=== PATIENT | male | born 1965 | race Caucasian/White ===

== ENCOUNTER 2025-01-17 13:40 | Emergency (ER) | payer BC, SELFPAY ==
--- OUTSIDE RECORDS SUMMARY | 2025-01-17 13:43 | XMS_ITS | Clinical Summary ---
Author Organization [employer] [facility] Address [address] [place] [id number] Care Team Providers Care Clothing Patternmaker Name Role Phone Freedom Kc MD Primary Care Provider Allergies Active Allergy Reactions Criticality Noted Date Comments Chlorpheniramine-Phenylpr opan *Unknown 03/03/2024 not allergic to chlorpheneramine- has Hay Fever the condition Medications acetaminophen (TYLENOL ORAL) Take 1,000 mg by mouth. Active clobetasol 0.05% (TEMOVATE 0.05% OINTMENT) 0.05 % ointmentIndicat ions:Well adult exam Apply topically to affected area(s) 2 times daily. 30 g 6 1 Active losartan (COZAAR) 100 mg tabletIndicatio ns:HTN (hypertension) Take 1 Tablet (100 mg) by mouth once daily. 30 Tablet 3 5 Active albuterol HFA (ProAir HFA) 90 mcg/actuation inhalerIndicati ons:Upper respiratory tract infection, unspecified type Inhale 1-2 Puffs by mouth every 6 hours if needed. 1 Each 1 12/22/19 25 Discontinu ed(*Med complete/R egimen complete/L evel of care change) benzonatate (Tessalon Perles) 100 mg capsuleIndicati ons:Upper respiratory tract infection, unspecified type Take 1 Capsule (100 mg) by mouth 3 times daily if needed for Cough. 30 Capsule 1 12/22/19 25 Discontinu ed(*Med complete/R egimen complete/L evel of care change) SUMAtriptan (IMITREX) 100 mg tabletIndicatio ns:Temporal headache Give at minimum 2hrs apart. Max Dose: 200mg per 24hrs.TAKE 1 TABLET BY MOUTH EVERY 2 HOURS IF NEEDED FOR MIGRAINE. GIVE AT MINIMUM 2 HOURS APART. MAX DOSE: 200MG PER 24 HOURS 10 Tablet 12 1 12/22/19 25 Discontinu ed(*Med complete/R egimen complete/L evel of care change) tiZANidine (ZANAFLEX) 4 mg tabletIndicatio ns:Low back strain, initial encounter Take 1 Tablet (4 mg) by mouth every 6 hours if needed for Muscle Spasm. 20 Tablet 2 12/22/19 25 Discontinu ed(*Med complete/R egimen complete/L evel of care change) losartan 50 mg tabletIndicatio ns:HTN (hypertension) Take 1 Tablet (50 mg) by mouth once daily. 90 Tablet 3 5 12/22/19 25 Discontinu ed(*Medica tion adjustment ) Active Problems Problem Noted Date Diagnosed Date Pancreatitis, acute 05/31/2019 Quadriceps muscle rupture, right, initial encoun ter 03/29/2018 Polyp of colon Encounters Date Type Department Care Team Description 01/17/2025 Nurse Triage [address] [phone] Freedom Kc MD Neurologic Problem 12/21/2024 9:00 AM CDT Office Visit [address] [phone] Freedom Kc MD Blood Pressure (Having chest pain center of chest off and on lasts seconds ) 12/21/2024 Travel 11/21/2024 9:40 AM CDT Office Visit [address] [phone] Freedom Kc MD Follow Up (Blood pressure ) 11/21/2024 Travel from Last 3 Months Immunizations Immunization Administration Dates Next Due Hepatitis B (Adult) 12/27/1998,10/22/1998 Td (Age >=7 Years) 01/02/2020,03/28/2003, 994 Family History Medical History Relation Name Comments Cancer-colon Father Diabetes Father Hypertension Father Heart attack Mother Hypertension Mother Relation Name Status Comments Brother 1 Alive Brother 2 MVA Father Mother Alive Social History Tobacco Use Types Packs/Day Years Used Date Smoking Tobacco: Never Smokeless Tobacco: Never Tobacco Cessation:Counseling Given: Yes Alcohol Use Standard Drinks/Week Comments Not Currently 5 (1 standard drink = 0.6 oz pur e alcohol) quit 11/2019 PHQ-2 Answer Date Recorded PHQ-2 TOTAL SCORE 0 08/16/2024 Social Connections Answer Date Recorded Do you often feel lonely or isolated from those around you? 0 11/21/2024 Financial Resource Strain Answer Date R ecorded Difficulty of Paying Living Expenses 3 11/21/2024 Difficulty of Paying Living Expenses Not on file 11/21/2024 Food Insecurity Answer Date Recorded Do you worry your food will run out before you are able to buy more? 1 11/21/2024 Transportation Needs Answer Date Record ed Does lack of transportation keep you from medica l appointments? 1 11/21/2024 Does lack of transportation keep you from work, meetings or getting things that you need? 1 11/21/2024 Housing Stability Answer Date Recorded What is your housing situation today? 1 11/21/2024 Interpersonal Safety Answer Date Record ed Are you being hit, kicked, p ushed or yelled at (see row info)? No 03/03/2024 Interpersonal Safety Abuse 12 - 18 Not on file 03/03/2024 Interpersonal Safety Ambulatory Vulnerability No t on file 03/03/2024 Utilities Answer Date Recorded Do you have trouble paying f or utilities (for example, heat, electricity, water, phone)? 1 11/21/2024 Sex and Gender Information Value Date Recorded Sex Assigned at Not on file Legal Sex Male 5:51 AM [employer] Gender Identity Not on file Sexual Orientation Not on file Obstetrics History Last Filed Vital Signs Vital Sign Reading Time Taken Comments Blood Pressure 142/102 12/21/2024 9:08 AM CDT Pulse 64 12/21/2024 9:04 AM CDT Temperature 36.6 C (97.9 F) 08/14/2024 5:52 PM CDT Respiratory Rate 18 08/14/2024 5:52 PM CDT Oxygen Saturation 100% 08/16/2024 11:44 AM CDT Inhaled Oxygen Concentration - - Weight 103.9 kg (229 lb) 12/21/2024 9:04 AM CDT Height 177.8 cm (5' 10) 12/21/2024 9:04 AM CDT Body Mass Index 32.86 12/21/2024 9:04 AM CDT Plan of Treatment Upcoming Encounters Date Type Department Care Team (Late st Contact Info) Description 01/23/2025 2:00 PM CDT Office Visit [facility] [address] [place] [address] Freedom Kc MD [address] [place] [address] Health Maintenance Due Date Last Done Comments HIV for age 15-65 1982 Hepatitis C screening for ag e 18-79 1985 Hepatitis B series for 19+ ( 3 of 3 - 19+ 3-dose series) 04/24/1999 12/27/1998, 10/22/1998 Pneumococcal series for age 50+ (1 of 1 - PCV) 2017 Zoster (shingles) series for age 50+ (1 of 2) 2017 COVID-19 vaccine series ( - 2023- season) 2024 Influenza Vaccine (#1) 2025 Depression screening for age 12+ 08/16/2025 08/16/2024, 04/01/2021, 01/02/2020, Additional history exists BMI (ht and wt on same day) for age 18+ 12/21/2025 12/21/2024, 11/21/2024, 08/16/2024, Additional history exists Lipids for age 45-75 12/21/2029 12/21/2024, 04/01/2021, 01/02/2020 Tetanus booster 01/01/2030 01/02/2020, 03/01, 05/31/1993 Colonoscopy through age 75 02/05/2030 02/06/2020 Procedures Procedure Name Priority Date/Time Associated Diagnosis Comments UA W/ SEDIMENT EXAM REFLEXED PER CRITERIA Routine 12/21/2024 10:23 AM CDT HTN (hypertension) Well adult exam BASIC METABOLIC PANEL Routine 12/21/2024 10:12 AM CDT HTN (hypertension) Well adult exam CBC W PLT NO DIFF Routine 12/21/2024 10: 12 AM CDT HTN (hypertension) Well adult exam TSH Routine 12/21/2024 10:12 AM CDT Well adult exam Mixed hyperlipidemia LIPID PANEL W REFLEX MEASURED LDL Routine 12/21/2024 10:12 AM CDT Well adult exam Mixed hyperlipidemia PSA TOTAL Routine 12/21/2024 10:12 AM CDT Screening PSA (prostate specific antigen) COLONOSCOPY 02/06/2020 7:21 AM CDT from Last 3 Months or Most Recently Relevant to Health Maintenance Results * (ABNORMAL) UA W/ SEDIMENT EXAM REFLEXED PER CRITERIA (12/21/2024 10:23 AM CDT) COLOR Yellow Yellow Color 12/21/2024 10:32 AM [facility] CLARITY Clear Clear Clarity 12/21/2024 10:32 AM [facility] SPECIFIC GRAVITY,URINE <=1.005(A) 1.010, 1.015, 1.020, 1.025 12/21/2024 10:32 AM [facility] PH,URINE 6.5 6.0, 7.0, 8.0, 5.5, 6.5, 7.5, 8.5 12/21/2024 10:32 AM [facility] UROBILINOGEN, QUALITATIVE Normal Normal EU/dl 12/21/2024 10:32 AM [facility] PROTEIN, URINE Negative Negative mg/dL 12/21/2024 10:32 AM [facility] GLUCOSE, URINE Negative Negative mg/dL 12/21/2024 10:32 AM [facility] KETONES,URINE Negative Negative mg/dL 12/21/2024 10:32 AM [facility] BILIRUBIN,URI NE Negative Negative 12/21/2024 10:32 AM CDT [facility] OCCULT BLOOD,URINE Negative Negative 12/21/2024 10:32 AM CDT [facility] NITRITE Negative Negative 12/21/2024 10:32 AM CDT [facility] LEUKOCYTE ESTERASE Negative Negative 12/21/2024 10:32 AM CDT [facility] Urine URINE SPECIMEN / Unknown Non-Blood / Unknown 12/21/2024 10:23 AM CDT 12/21/2024 10:23 AM CDT us Freedom Kc MD URINE Final R esult [facility] [address] [place] [address] * (ABNORMAL) LIPID PANEL W REFLEX MEASURED LDL (12/21/2024 10:12 AM CDT) CHOLESTEROL, TOTAL 215(H) <200 mg/dL [facility] HDL CHOLESTEROL 45 > OR = 40 mg/dL [facility] TRIGLYCERIDES 139 <150 mg/dL [facility] LDL-CHOLESTEROL 144(H) mg/dL (calc) [facility] Comment: Reference range: <100 Desirable range <100 mg/dL for primary prevention; <70 mg/dL for patients with CHD or diabetic patients with > or = 2 CHD risk factors. LDL-C is now calculated using the Ronald-Cory calculation, which is a validated novel method providing better accuracy than the Friedewald equation in the estimation of LDL-C. Ronald MERINO et al. VINAY. 2013;310(19): 3743-2968 (http://education.PopUpsters/faq/QAD151) CHOL/HDLC RATIO 4.8 <5.0 (calc) [facility] NON HDL CHOLESTEROL 170(H) <130 mg/dL (calc) [facility] Comment: For patients with diabetes plus 1 major ASCVD risk factor, treating to a non-HDL-C goal of <100 mg/dL (LDL-C of <70 mg/dL) is considered a therapeutic option. Blood BLOOD SPECIMEN / Unknown 12/21/2024 10:12 AM CDT 12/21/2024 10:14 AM CDT Narrative [facility] - 12/22/2024 5:28 AM CDT FASTING:NO FASTING: NO Freedom Kc MD CHEMISTRY Final R esult Performing Organization Address [facility]/ZIP Co de Phone Number [employer] [address] [address], [facility] [address] [place] [address] * TSH (12/21/2024 10:12 AM CDT) Pathologist [facility] TSH 0.68 0.40 - 4.50 mIU/L [facility] Blood BLOOD SPECIMEN / Unknown 12/21/2024 10:12 AM CDT 12/21/2024 10:14 AM CDT Narrative [facility] - 12/22/2024 5:08 AM CDT FASTING:NO FASTING: NO Freedom Kc MD CHEMISTRY Final R esult Performing Organization Address [facility] Co de Phone Number [employer] [address] [address], [facility] [address] * CBC W PLT NO DIFF (12/21/2024 10:12 AM CDT) WHITE BLOOD CELL COUNT 7.4 3.8 - 10.8 Thousand/u L [facility] RED BLOOD CELL COUNT 4.91 4.20 - 5.80 Million/uL [facility] HEMOGLOBIN 15.1 13.2 - 17.1 g/dL [facility] HEMATOCRIT 44.4 38.5 - 50.0 % [facility] MCV 90.4 80.0 - 100.0 fL [facility] MCH 30.8 27.0 - 33.0 pg [facility] MCHC 34.0 32.0 - 36.0 g/dL [facility] Comment: For adults, a slight decrease in the calculated MCHC value (in the range of 30 to 32 g/dL) is most likely not clinically significant; however, it should be interpreted with caution in correlation with other red cell parameters and the patient's clinical condition. RDW 12.6 11.0 - 15.0 % [facility] PLATELET COUNT 196 140 - 400 Thousand/u L [facility] MPV 10.9 7.5 - 12.5 fL [facility] Blood BLOOD SPECIMEN / Unknown 12/21/2024 10:12 AM CDT 12/21/2024 10:14 AM CDT Narrative [facility] - 12/22/2024 3:34 AM CDT FASTING:NO FASTING: NO Freedom Kc MD HEMATOLOGY Final R esult [employer] [facility] [address] [place] [address], [facility] [address] [place] [address] * PSA TOTAL (12/21/2024 10:12 AM CDT) PSA, TOTAL 0.67 < OR = 4.00 ng/mL [facility] Comment: The total PSA value from this assay system is standardized against the WHO standard. The test result will be approximately 20% lower when compared to the equimolar-standardized total PSA (Pham Serafin). Comparison of serial PSA results should be interpreted with this fact in mind. This test was performed using the Siemens chemiluminescent method. Values obtained from different assay methods cannot be used interchangeably. PSA levels, regardless of value, should not be interpreted as absolute evidence of the presence or absence of disease. Blood BLOOD SPECIMEN / Unknown 12/21/2024 10:12 AM CDT 12/21/2024 10:14 AM CDT Narrative [facility] - 12/22/2024 5:08 AM CDT FASTING:NO FASTING: NO Freedom Kc MD CHEMISTRY Final R esult Performing Organization Address City/[facility]/ZIP Co de Phone Number [employer] [facility] [address] [place] [address], [facility] [address] [place] [address] * (ABNORMAL) BASIC METABOLIC PANEL (12/21/2024 10:12 AM CDT) Pathologist [facility] GLUCOSE 73 65 - 139 mg/dL [facility] Comment: Non-fasting reference interval UREA NITROGEN (BUN) 14 7 - 25 mg/dL [facility] CREATININE 0.91 0.70 - 1.30 mg/dL [facility] EGFR 98 > OR = 60 mL/min/1. 73m2 [facility] BUN/CREATININE RATIO SEE NOTE: 6 - 22 (calc) [facility] Comment: Not Reported: BUN and Creatinine are within reference range. SODIUM 139 135 - 146 mmol/L [facility] POTASSIUM 4.4 3.5 - 5.3 mmol/L [facility] CHLORIDE 102 98 - 110 mmol/L [facility] CARBON DIOXIDE 31 20 - 32 mmol/L [facility] ELECTROLYTE BALANCE 6(L) 7 - 17 mmol/L (calc) [facility] CALCIUM 9.6 8.6 - 10.3 mg/dL [facility] Blood BLOOD SPECIMEN / Unknown 12/21/2024 10:12 AM CDT 12/21/2024 10:14 AM CDT Narrative [facility] - 12/22/2024 5:28 AM CDT FASTING:NO FASTING: NO Freedom Kc MD CHEMISTRY Final R esult Performing Organization Address City/[facility]/ZIP Co de Phone Number [employer] [facility] [address] [place] [address], [facility] [address] [place] [phone] * COLONOSCOPY (02/06/2020 7:21 AM CDT) 02/06/2020 7:21 AM CDT Narrative Transcriptions Julio Rivas, - 02/06/2020 8:05 AM CDT Patient Name: Augie Ramos Procedure Date: 02/06/2020 Gender: Male Date of : 1965 Admit Type: Ambulatory Procedure: Colonoscopy Proceduralist: Julio Rivas MD [facility] Indications/Pre-Op Diagnosis: Screening in patient at increased risk:Family history of 1st-degree relative withcolorectal cancer, This is the patient's firstcolonoscopy Medications: Monitored Anesthesia Care Procedure Description: The patient had risks, benefits and alternatives explained to andgave informed consent. The patient had a stable cardiopulmonary status and judged an adequate candidate for conscious sedation. The colonoscope was passed through the anus and advanced to thececum, identified by appendiceal orifice and ileocecal valve. Thecolonoscopy was performed without difficulty. The patient tolerated the procedure well. The quality of the bowel preparation was good. The ileocecal valve, appendiceal orifice, and rectum were photographed. Complications: No immediate complications. Estimated Blood Loss & Specimen: Estimated blood loss: none. Specimen collected - Yes and sent to Laboratory Findings: Two sessile polyps were found in the descending colon. The polypswere 3 to 4 mm in size. These polyps were removed with a hot snare.Resection and retrieval were complete. Verification of patient identificationfor the specimen was done. Estimated blood loss was minimal. Two sessile polyps were found in the sigmoid colon. The polyps were 4to 5 mm in size. These polyps were removed with a hot snare. Resectionand retrieval were complete. Verification of patient identification forthe specimen was done. Estimated blood loss was minimal. Non-bleeding internal hemorrhoids were found during retroflexion. The hemorrhoids were Grade II (internal hemorrhoids that prolapse butreduce spontaneously). Impressions/Post-Op Diagnosis: - Two 3 to 4 mm polyps in the descending colon, removed with a hot snare. Resected and retrieved. - Two 4 to 5 mm polyps in the sigmoid colon, removed with a hotsnare. Resected and retrieved. - Non-bleeding internal hemorrhoids. Recommendation: - Discharge patient to home. - Patient has a contact number available for emergencies. The signsand symptoms of potential delayed complications were discussed with the patient. Return to normal activities tomorrow. Written discharge instructions were provided to the patient. - High fiber diet. - Continue present medications. - Await pathology results. - Repeat colonoscopy in 5 years for surveillance. Moderate Sedation: Moderate (conscious) sedation was personally administered by an anesthesia professional. The following parameters were monitored:oxygen saturation, heart rate, blood pressure, and response to care. Julio Rivas MD 02/06/2020 8:05:23 AM This report has been signed electronically. Note Initiated On: 02/06/2020 7:21 AM us Julio Rivas DO PROCEDURE ORD Fi nal Result from Last 3 Months or Most Recently Relevant to Health Maintenance Insurance [employer] KHAN LARISA Advance Directives * Full Code (Latest Code Status on File) Date Activated Date Inactivated Comments 02/06/2020 6:32 AM 02/06/2020 11:49 AM Question Answer Comments Code Status Discussion: Discussed Care Teams Clothing Patternmaker Relationship Specialty Start Date End Date Freedom Kc MD [address] [facility] [place] [address] PCP - General Family Practice 01/26/20
[2025-01-17 13:56] VITALS: BP 170/83; PULSE 76; RESP 20; TEMP 36.8; O2SAT 98; BMI 33.0
--- NOTE | 2025-01-17 14:33 | CRLHL7_ITS ---
For Patients: As a result of the Century Cures Act, medical imaging exams and procedure reports are released immediately into your electronic medical record. You may view this report before your referring provider. If you have questions, please contact your health care provider. INDICATION: RIGHT ARM NUMBNESS. TECHNIQUE: CT of the cervical spine was performed without intravenous contrast. COMPARISON: None. FINDINGS: Alignment: Straightening of the normal cervical lordosis. Vertebrae: Vertebral bodies and posterior elements are intact without acute fracture. Mild degenerative changes of the visualized spine. Extra-vertebral soft tissues: Normal. Visualized brain: Normal. Additional comment: None. IMPRESSION: 1. No acute displaced fracture or malalignment of the cervical spine. 2. Mild degenerative changes of the visualized spine. No severe spinal canal or neural foraminal narrowing is seen. Consider MRI for further evaluation if there is concern for significant narrowing or nerve root compression. Please note that all CT scans at this facility use dose modulation, iterative reconstruction, and/or weight-based dosing when appropriate to reduce radiation dose to as low as reasonably achievable. Dictated by Rafael Batista MD @ 01/17/2025 3:25:45 PM (Electronically Signed)
--- NOTE | 2025-01-17 14:33 | CRLHL7_ITS ---
For Patients: As a result of the Century Cures Act, medical imaging exams and procedure reports are released immediately into your electronic medical record. You may view this report before your referring provider. If you have questions, please contact your health care provider. INDICATION: RIGHT ARM NUMBNESS TECHNIQUE: CT of the head was performed without IV contrast. COMPARISON: None. FINDINGS: Parenchyma: No acute hemorrhage, infarction, or mass. Mild scattered periventricular white matter hypoattenuation is nonspecific and is favored to represent chronic small vessel ischemic disease. Ventricles and extra-axial spaces: Appropriate for age. Visualized paranasal sinuses: Mild mucosal thickening of the bilateral maxillary sinuses. Mastoid air cells: Clear. Bones: No focal abnormality. Additional comment: None. IMPRESSION: No acute intracranial abnormality. Please note that all CT scans at this facility use dose modulation, iterative reconstruction, and/or weight-based dosing when appropriate to reduce radiation dose to as low as reasonably achievable. Dictated by Rafael Batista MD @ 01/17/2025 3:19:22 PM (Electronically Signed)
--- NOTE | 2025-01-17 14:34 | CRLHL7_ITS ---
For Patients: As a result of the Century Cures Act, medical imaging exams and procedure reports are released immediately into your electronic medical record. You may view this report before your referring provider. If you have questions, please contact your health care provider. INDICATION: Chest wall paresthesia COMPARISON: None. TECHNIQUE: Single frontal radiographic view(s) of the chest. FINDINGS: No substantial pleural effusion. No definite focal pulmonary consolidation. Normal heart size. No acute osseous findings. IMPRESSION: No acute thoracic findings. Dictated by Jed Farias MD @ 01/17/2025 3:28:52 PM (Electronically Signed)
--- NOTE | 2025-01-17 14:36 | ED_ITS ---
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 He does not notice any weakness in his arm. He has not had any headache her neurologic complaint. Patient does report that he has had no chest pain, but his states he has had slight upper chest discomfort in the area of the numbness. He has had no bleeding or clotting problems. No history of leg swelling or edema. He has got no other specific complaints. He does take losartan that started about a month ago for hypertension. The patient does see Dr. Kc in [place]. He does not smoke, nondiabetic. He does not drink as a 5 years ago when he had pancreatitis. He notices no changes with movement of the arm or neck. He again he describes mostly a numb tingly feeling rather than a pain or weakness sensation. <Jack Zaidi MD - Last Filed: 01/19/25 08:26> Related Data Home medications: Home Medications ?Medication ?Instructions ?Recorded ?Confirmed losartan 100 mg tablet 100 mg PO DAILY 01/17/25 <Jack Zaidi MD - Last Filed: 01/19/25 08:26> Allergies/adverse reactions: Allergies Allergy/AdvReac Type Severity Reaction Status Date / Time No Known Drug Allergies Allergy Verified 01/17/25 14:01 <Jack Zaidi MD - Last Filed: 01/19/25 08:26> Review of Systems Status of ROS: Reports: 6 or more systems reviewed and unremarkable except as noted in History and below <Jack Zaidi MD - Last Filed: 01/19/25 08:26> Exam Narrative: Exam Narrative: Objective: Blood pressure elevated 170 otherwise vital signs are within normal limits Alert orient x3 no distress HEENT shows no facial asymmetry no scleral icterus Neck is supple Right upper arm shows full range of motion of the shoulder no tenderness or injury or soreness with mobility. The patient has good distal CMS right upper extremity no swelling Neurologic nonfocal Lungs clear Heart rhythm without murmur Abdomen benign soft nontender Extremities as mention he moves well, no swelling or edema in extremities. Normal strength. <Jack Zaidi MD - Last Filed: 01/19/25 08:26> Const: Vital Signs, click to edit/add: Vital Signs - 24 hr 01/17/25 13:56 Temperature 98.3 F Pulse Rate [Pulse Oximeter] 76 Respiratory Rate 20 Blood Pressure [Ri ght Upper Arm] 170/83 H Pulse Oximetry 98 Oxygen Delivery Me thod Room Air <Jack Zaidi MD - Last Filed: 01/19/25 08:26> Vital Signs, click to edit/add: Vital Signs - 24 hr 01/17/25 13:56 Temperature 98.3 F Pulse Rate [Pulse Oximeter] 76 Respiratory Rate 20 Blood Pressure [Ri ght Upper Arm] 170/83 H Pulse Oximetry 98 Oxygen Delivery Me thod Room Air <Augie Hubbard MD - Last Filed: 01/17/25 21:14> Course Vital Signs Vital signs: Initial Vital Signs Temperature 98.3 F 01/17/25 13:56 Temperature Source Temporal Artery Scan 01/17/25 13:56 Pulse Rate 76 01/17/25 13:56 Respiratory Rate 20 01/17/25 13:56 Blood Pressure 170/83 H 01/17/25 13:56 Blood Pressure Mean 112 H 01/17/25 13:56 Pulse Oximetry 98 01/17/25 13:56 Oxygen Delivery Method Room Air 01/17/25 13:56 Vital Signs Temperature 98.3 F 01/17/25 13:56 Pulse Rate 76 01/17/25 13:56 Respiratory Rate 20 01/17/25 13:56 Blood Pressure 170/83 H 01/17/25 13:56 Pulse Oximetry 98 01/17/25 13:56 Oxygen Delivery Method Room Air 01/17/25 13:56 Temperature 98.3 F 01/17/25 13:56 Pulse Rate 76 01/17/25 13:56 Respiratory Rate 20 01/17/25 13:56 Blood Pressure 170/83 H 01/17/25 13:56 Pulse Oximetry 98 01/17/25 13:56 Oxygen Delivery Method Room Air 01/17/25 13:56 <Jack Zaidi MD - Last Filed: 01/19/25 08:26> Initial Vital Signs Temperature 98.3 F 01/17/25 13:56 Temperature Source Temporal Artery Scan 01/17/25 13:56 Pulse Rate 76 01/17/25 13:56 Respiratory Rate 20 01/17/25 13:56 Blood Pressure 170/83 H 01/17/25 13:56 Blood Pressure Mean 112 H 01/17/25 13:56 Pulse Oximetry 98 01/17/25 13:56 Oxygen Delivery Method Room Air 01/17/25 13:56 Vital Signs Temperature 98.3 F 01/17/25 13:56 Pulse Rate 76 01/17/25 13:56 Respiratory Rate 20 01/17/25 13:56 Blood Pressure 170/83 H 01/17/25 13:56 Pulse Oximetry 98 01/17/25 13:56 Oxygen Delivery Method Room Air 01/17/25 13:56 Temperature 98.3 F 01/17/25 13:56 Pulse Rate 76 01/17/25 13:56 Respiratory Rate 20 01/17/25 13:56 Blood Pressure 170/83 H 01/17/25 13:56 Pulse Oximetry 98 01/17/25 13:56 Oxygen Delivery Method Room Air 01/17/25 13:56 <Augie Hubbard MD - Last Filed: 01/17/25 21:14> Medications Administered Medications: Discontinued Medications Generic Name Dose Route Start Last Admin Trade Name Freq PRN Reason Stop Dose Admin Aspirin 324 mg 01/17/25 14:33 01/17/25 15:32 Aspirin 81 Mg Tab.Chew PO 01/17/25 14:34 324 mg ONCE ONE Administration Sodium Chloride 500 mls @ 500 mls/hr 01/17/25 14:33 01/17/25 16:20 0.9 % Sodium Chloride 500 Ml IV 01/17/25 15:32 Infused .Q1H ONE Infusion <Jack Zaidi MD - Last Filed: 01/19/25 08:26> Discontinued Medications Generic Name Dose Route Start Last Admin Trade Name Freq PRN Reason Stop Dose Admin Aspirin 324 mg 01/17/25 14:33 01/17/25 15:32 Aspirin 81 Mg Tab.Chew PO 01/17/25 14:34 324 mg ONCE ONE Administration Sodium Chloride 500 mls @ 500 mls/hr 01/17/25 14:33 01/17/25 16:20 0.9 % Sodium Chloride 500 Ml IV 01/17/25 15:32 Infused .Q1H ONE Infusion <Augie Hubbard MD - Last Filed: 01/17/25 21:14> Medical Decision Making [facility] Narrative Medical decision making narrative: [age] year white male with hypertension and history of remote pancreatitis, presents with some paresthesia from his right shoulder medial to his neck. His reports that he complained of some discomfort her along his clavicle area. I think could be appropriate to check the following. Will get a head CT scan make sure has not had any obvious stroke or other issue, would check a CT scan of the neck to rule out disc herniation or abnormality Would also order chest x-ray, EKG, troponin, laboratory studies. Will get a D- dimer as well. Differential would be broad including acute coronary syndrome, cervical radiculitis, musculoskeletal issue. At this point the patient will get the above-mentioned workup he agrees to proceed , aspirin be given. He has comfortable pursuing the above-mentioned diagnostic path. Addendum 3:30 p.m.: The patient's EKG by my read shows normal sinus rhythm. His head and neck CT scans are largely unremarkable. At this point I am awaiting his laboratory studies. If his labs are all reassuring I think simply be some anti-inflammatory medicine or even a Medrol Dosepak might be helpful to minimize some of his symptoms. Disposition pending results as mention. <Jack Zaidi MD - Last Filed: 01/19/25 08:26> [age] year white male with hypertension and history of remote pancreatitis, presents with some paresthesia from his right shoulder medial to his neck. His reports that he complained of some discomfort her along his clavicle area. I think could be appropriate to check the following. Will get a head CT scan make sure has not had any obvious stroke or other issue, would check a CT scan of the neck to rule out disc herniation or abnormality Would also order chest x-ray, EKG, troponin, laboratory studies. Will get a D- dimer as well. Differential would be broad including acute coronary syndrome, cervical radiculitis, musculoskeletal issue. At this point the patient will get the above-mentioned workup he agrees to proceed , aspirin be given. He has comfortable pursuing the above-mentioned diagnostic path. Addendum 3:30 p.m.: The patient's EKG by my read shows normal sinus rhythm. His head and neck CT scans are largely unremarkable. At this point I am awaiting his laboratory studies. If his labs are all reassuring I think simply be some anti-inflammatory medicine or even a Medrol Dosepak might be helpful to minimize some of his symptoms. Disposition pending results as mention. Patient signed out to Dr. Hubbard at 4:00 p.m.. Awaiting formal troponin from lab to see if the point of care troponin is a true positive for a false positive. Dr. Pearce suspects that the point of care troponin is probably a false positive. Repeat troponin came back undetectable. This would indicate that the point of care troponin was probably a false positive. Per Dr. Zaidi's's plan, patient does not need to be admitted for NSTEMI with the lab troponin being normal. I recheck the patient. Informed the patient and his about the reassuring lab tests. I repeated a history and physical because it is unclear what is causing his symptoms. He was recently diagnosed with high blood pressure after he had a work injury and his work nurse checked his blood pressure. He was started on losartan 100 mg daily about a month ago. He has been measuring his blood pressure pretty often, 2 or 3 times a day and notes that her blood pressure often bounces around. He has some numbers that are about 140/90 and others that her up to in the 160s-70s/90. He has his blood pressure really has not gone down very much even though he has been taking his losartan every day for the past month. He also recalls that he had been having some intermittent, nonexertional, tingly says feelings in the center of his chest off and on about a month ago but these have gone away recently. He has a family history of heart disease, but no personal history of coronary disease. He does not have a history of diabetes, high cholesterol. He is a nonsmoker. The symptoms that brought him to the ER actually started about 5 or 6 days ago, last with intermittent, nonexertional brief episodes of a tingly feeling affecting his right anterior upper chest and shoulder (roughly in a horizontal stripe across the front of his collarbone). These come and go multiple times per day. They usually last about a minute or so and then resolved. The numb feeling never radiates down his arm. Sometimes it goes up to the right side of his neck. It never goes down to his chest or through his shoulder to the back. He is not actually having any pain in his shoulder or neck at any point. His is careful to point now, however, he did have some chest pain a few weeks ago. No other symptoms with these numbness. No palpitations. No numbness or weakness down his arm. No chest pain. No back pain. No shoulder pain. No swelling. No rash. No bruising. No trouble swallowing. No headache. No blurry vision or double vision. No other focal numbness or weakness in his arms or legs. No slurred speech. No confusion. He is not having anxiety. No abdominal pain. There is no pattern of postprandial shoulder numbness. No correlation to exertion or turning his neck. It just goes numb and lasts about a minute multiple times per day. No swelling in his legs. No recent travel or immobilization. The reason why he came to the ER today was because today he told his about his symptoms and she made him come in. Patient raises 2 concerns. Foremost, were concerned about the intermittent numbness affecting the patient's right clavicle and right anterior chest. No chest pain with this but differential does include possible ACS or angina. EKG nonischemic and lab troponin is undetectable. No evidence for STEMI or non STEMI. Clinical history with intermittent single minute episodes of pain not related to exertion or position would argue against that this is unstable angina. However would recommend close outpatient follow-up with PCP to consider stress testing given his age and risk factors. Heart score is 3. Consider possible PE although he is not having any chest pain or shortness of breath. Screening D-dimer is normal Consider possible dissection although no pain through to the back, so intact pulses on exam, no high risk features, and negative D-dimer. Therefore his aortic dissection risk score is low risk and at this point risk of radiation and contrast outweigh the benefit of a CT angio. No evidence for shingles. No known injury. No sign of chest wall infection. Consider possible cervical radiculopathy. This could be a C5 radiculopathy. However C-spine MRI shows no significant spinal cord abnormality or significant foraminal narrowing or signs of impingement on right C5 or C4. He does have some degenerative changes but no acute surgical lesions. Also no evidence for syringomyelia or other abnormality. Second, the patient is also concerned that his blood pressure has been labile and a bit uncontrolled this month. He just was diagnosed with high blood pressure about a month ago and has been on losartan. At this point there is no evidence for any acute hypertensive emergency. Discussed this in detail with the patient and his . They are comfortable monitoring the blood pressure at home, measuring once a day keeping a record, and will follow-up with her PCP within a few days for blood pressure recheck and blood pressure medication adjustments. Discussed plan of care with the patient and his . They are agreeable and eager for discharge. Precautions for return are reviewed. <Augie Hubbard MD - Last Filed: 01/17/25 21:14> Lab Data Labs: Lab Results 01/17/25 Range/Units 15:15 WBC 6.72 (4.50-11.00) K/uL RBC 4.60 (4.30-5.90) m/uL Hgb 14.1 (13.5-17.5) gm/dL Hct 40.7 (37.0-53.0) % MCV 89 (80-100) fL MCH 31 (26-34) pg MCHC 35 (32-36) gm/dL RDW Coeff of Audrey 12.1 (11.5-15.5) % Plt Count 167 (140-440) K/uL Neut % (Auto) 55.1 (42.0-72.0) % Lymph % (Auto) 32.7 (20-44) % [place] % (Auto) 7.3 (0.0-11.0) % Eos % (Auto) 3.9 (0.0-7.0) % Baso % (Auto) 0.7 (0.0-3.0) % Neut # (Auto) 3.70 (1.7-7.0) K/uL Lymph # (Auto) 2.20 (0.90-2.90) K/uL [place] # (Auto) 0.50 (0.00-0.90) K/UL Eos # (Auto) 0.26 (0.00-0.50) K/uL Baso # (Auto) 0.05 (0.00-0.30) K/uL Abs Immat Gran (auto) 0.02 (0.00-0.30) K/uL Imm/Tot Granulo (auto) 0.3 % D-Dimer Quant (PE/DVT) < 0.27 (0.00-0.50) ug/ml Sodium 140 (135-149) mmol/L Potassium 3.9 (3.6-5.1) mmol/L Chloride 103 (96-114) mmol/L Carbon Dioxide 33 H (20-32) mmol/L Anion Gap 4 L (7-15) mEq/L BUN 11 (7-30) mg/dL Creatinine 0.8 (0.5-1.5) mg/dL Estimated Creat Clear 103.92 Estimated GFR 103 ml/min Glucose 104 (60-115) mg/dL Calcium 9.3 (8.4-10.6) mg/dL Total Bilirubin 0.7 (0.1-1.5) mg/dL Direct Bilirubin 0.1 (0.0-0.5) mg/dL AST 31 (12-35) U/L ALT 28 (4-50) U/L Alkaline Phosphatase 58 (40-150) U/L Troponin I < 0.01 (0.01-0.04) ng/mL C-Reactive Protein < 0.5 L (0.5-1.0) mg/dL NT-Pro-B Natriuret Pep < 20 (See Note) pg/mL Total Protein 7.4 (6.0-8.3) g/dL Albumin 4.3 (3.3-5.0) g/dL POC Troponin I 0.06 H (0.01-0.04) ng/ml <Jack Zaidi MD - Last Filed: 01/19/25 08:26> Lab Results 01/17/25 Range/Units 15:15 WBC 6.72 (4.50-11.00) K/uL RBC 4.60 (4.30-5.90) m/uL Hgb 14.1 (13.5-17.5) gm/dL Hct 40.7 (37.0-53.0) % MCV 89 (80-100) fL MCH 31 (26-34) pg MCHC 35 (32-36) gm/dL RDW Coeff of Audrey 12.1 (11.5-15.5) % Plt Count 167 (140-440) K/uL Neut % (Auto) 55.1 (42.0-72.0) % Lymph % (Auto) 32.7 (20-44) % [place] % (Auto) 7.3 (0.0-11.0) % Eos % (Auto) 3.9 (0.0-7.0) % Baso % (Auto) 0.7 (0.0-3.0) % Neut # (Auto) 3.70 (1.7-7.0) K/uL Lymph # (Auto) 2.20 (0.90-2.90) K/uL [place] # (Auto) 0.50 (0.00-0.90) K/UL Eos # (Auto) 0.26 (0.00-0.50) K/uL Baso # (Auto) 0.05 (0.00-0.30) K/uL Abs Immat Gran (auto) 0.02 (0.00-0.30) K/uL Imm/Tot Granulo (auto) 0.3 % D-Dimer Quant (PE/DVT) < 0.27 (0.00-0.50) ug/ml Sodium 140 (135-149) mmol/L Potassium 3.9 (3.6-5.1) mmol/L Chloride 103 (96-114) mmol/L Carbon Dioxide 33 H (20-32) mmol/L Anion Gap 4 L (7-15) mEq/L BUN 11 (7-30) mg/dL Creatinine 0.8 (0.5-1.5) mg/dL Estimated Creat Clear 103.92 Estimated GFR 103 ml/min Glucose 104 (60-115) mg/dL Calcium 9.3 (8.4-10.6) mg/dL Total Bilirubin 0.7 (0.1-1.5) mg/dL Direct Bilirubin 0.1 (0.0-0.5) mg/dL AST 31 (12-35) U/L ALT 28 (4-50) U/L Alkaline Phosphatase 58 (40-150) U/L Troponin I < 0.01 (0.01-0.04) ng/mL C-Reactive Protein < 0.5 L (0.5-1.0) mg/dL NT-Pro-B Natriuret Pep < 20 (See Note) pg/mL Total Protein 7.4 (6.0-8.3) g/dL Albumin 4.3 (3.3-5.0) g/dL POC Troponin I 0.06 H (0.01-0.04) ng/ml <Augie Hubbard MD - Last Filed: 01/17/25 21:14> Imaging Data MRI C spine: Attestation: I have reviewed the pertinent imaging results. <Augie Hubbard MD - Last Filed: 01/17/25 21:14> Radiologist's impression: IMPRESSION: 1. Normal alignment. No fractures. 2. Normal cord signal 3. Marrow edema of the articular processes of the right C3-4 facet joint which may be secondary to stress reaction or inflammation 4. Multilevel mild and moderate narrowing of the neural foramina as described above <Augie Hubbard MD - Last Filed: 01/17/25 21:14> Discharge Plan Discharge Clinical Impression: Numbness, Hypertension <Jack Zaidi MD - Last Filed: 01/19/25 08:26> Patient Disposition: Home, Self-Care <Jack Zaidi MD - Last Filed: 01/19/25 08:26> Condition: Stable <Jack Zaidi MD - Last Filed: 01/19/25 08:26> Instructions: Paresthesia (ED), Hypertension (ED) <Jack Zaidi MD - Last Filed: 01/19/25 08:26> Additional Instructions: As we discussed, so far your workup looks reassuring. The blood tests an EKG for your heart look good, but I do want you to see your regular doctor within the next 1-3 days and set up a stress test. Your neck MRI looks okay. You do not have any major bulging discs or pinched nerves or sign of spinal cord damage, however you do have arthritic changes at several of the joints in your neck. Monitor the symptoms carefully. If you have worsening numbness, any weakness down your right arm, or if your symptoms change in become painful in your chest, please return to the ER right away to be rechecked. Please recheck her blood pressure once per day and keep a log. Follow-up with your doctor within the next couple of days for blood pressure check. Your doctor will likely have to adjust her blood pressure medications. <Jack Zaidi MD - Last Filed: 01/19/25 08:26> Prescriptions: No Action losartan 100 mg tablet 100 mg PO DAILY <Jack Zaidi MD - Last Filed: 01/19/25 08:26> Follow Up/Referrals: Provider,Not a Local [Primary Care Provider, Family Practice] <Jack Zaidi MD - Last Filed: 01/19/25 08:26> Stand Alone Forms: [employer] Info Instructions <Jack Zaidi MD - Last Filed: 01/19/25 08:26>
[2025-01-17 15:27] LABS: Hematocrit 40.7 % (37.0-53.0); Hemoglobin* 14.1 gm/dL (13.5-17.5); Immature Granulocytes Abs Auto 0.02 K/uL (0.00-0.30); Immature Granulocytes Pct Auto 0.3 %; Lymphocytes Absolute Auto 2.20 K/uL (0.90-2.90); Mean Corpuscular HGB Conc 35 gm/dL (32-36); Mean Corpuscular Hemoglobin 31 pg (26-34); Mean Corpuscular Volume 89 fL (80-100); RDW Coefficient of Variation % 12.1 % (11.5-15.5); Red Blood Count 4.60 m/uL (4.30-5.90); White Blood Count* 6.72 K/uL (4.50-11.00)
[2025-01-17] MEDS: 0.9 % SODIUM CHLORIDE 500 ML 500 ML IV (15:31)
[2025-01-17] MEDS: ASPIRIN 81 MG TAB.CHEW 324 MG PO (15:32)
[2025-01-17 15:33] LABS: Troponin, Point-of-Care* 0.06 ng/ml (0.01-0.04)
[2025-01-17 15:41] LABS: Albumin* 4.3 g/dL (3.3-5.0); Chloride* 103 mmol/L (96-114); Potassium* 3.9 mmol/L (3.6-5.1); Slide Review Reflex No; Sodium* 140 mmol/L (135-149)
[2025-01-17 15:44] LABS: Alanine Aminotransferase* 28 U/L (4-50); Alkaline Phosphatase* 58 U/L (40-150); Anion Gap 4 mEq/L (7-15); Aspartate Amino Transferase* 31 U/L (12-35); Bilirubin Direct* 0.1 mg/dL (0.0-0.5); Bilirubin Total* 0.7 mg/dL (0.1-1.5); Blood Urea Nitrogen* 11 mg/dL (7-30); Carbon Dioxide* 33 mmol/L (20-32); Creatinine* 0.8 mg/dL (0.5-1.5); Est. Creatinine Clearance* 103.92; Estimated Glomerular Filt Rate 103 ml/min; Total Protein* 7.4 g/dL (6.0-8.3)
[2025-01-17 15:45] LABS: Calcium* 9.3 mg/dL (8.4-10.6); Glucose* 104 mg/dL (60-115)
[2025-01-17 15:58] LABS: NT Pro B Type NatriureticPept* < 20 pg/mL (See Note)
[2025-01-17 15:59] LABS: D Dimer Quantitative* < 0.27 ug/ml (0.00-0.50)
--- NOTE | 2025-01-17 17:01 | CRLHL7_ITS ---
For Patients: As a result of the Century Cures Act, medical imaging exams and procedure reports are released immediately into your electronic medical record. You may view this report before your referring provider. If you have questions, please contact your health care provider. INDICATION: Right shoulder and numbness. Comparison 01/17/2025. Technique Sagittal T1, T2, and STIR sequences. Axial T2/gradient sequences. FINDINGS: Normal vertebral body facet alignment. No fractures. No vertebral body loss of height. No spondylolisthesis. No ligamentous injury. No suspicious osseous lesions. Normal cord signal. No intradural mass or lesion. Marrow edema of the articular processes of the right C3-4 facet joint which may be secondary to stress reaction or inflammation from facet arthritis. C1-2: No spinal canal narrowing. C2-3: No spinal canal neural foraminal narrowing. C3-4: Mild disc degeneration. No narrowing of spinal canal. Mild narrowing of bilateral foramina. C4-5: Disc generation posted disc bulged disc osteophyte complex. No narrowing of the spinal canal. Mild narrowing of bilateral foramina. C5-6: Disc degeneration broad-based disc osteophyte complex. No narrowing of the spinal canal. Moderate narrowing of the bilateral foramina. C6-7: Disc generation broad-based disc osteophyte complex. No narrowing of the spinal canal. Mild right and moderate left neural foraminal narrowing. C7-T1: No spinal canal or neural foraminal narrowing. IMPRESSION: 1. Normal alignment. No fractures. 2. Normal cord signal 3. Marrow edema of the articular processes of the right C3-4 facet joint which may be secondary to stress reaction or inflammation 4. Multilevel mild and moderate narrowing of the neural foramina as described above Dictated by Jasper Ling MD @ 01/17/2025 5:54:39 PM (Electronically Signed)
== END 2025-01-17 19:08 | disposition home or self-care (01) ==
PROVIDERS: Family Medicine; Emergency Provider Emergency Medicine
DX: R20.2 Paresthesia of skin (principal); I10 Essential (primary) hypertension
CPT/HCPCS: 36415; 70450; 71045; 72125; 72141; 80048; 80076; 83880; 84484; 85025; 85379; 86140; 93005; 99285; A9270; J7030